=== PATIENT | male | born 1980 | race Two or more races ===

== ENCOUNTER 2022-01-04 06:29 | Day surgery (SDC) | payer OTHER ==
[~2022-01-04] VITALS: Ht 30.5 cm; Wt 90.7 kg
[~2022-01-04 06:29] MED LIST: ALTACE5 MG PO; PERCOCET PO
[2022-01-04] MEDS ORDERED: PERCOCET 5-3251 EACH PO (14:10)
== END 2022-01-04 16:25 | disposition home or self-care (01) ==
LOC: CIR.AMB 06:29
PROVIDERS: ATTEND Surgery
DX: K80.10 Calculus of gallbladder with chronic cholecystitis without obstruction (principal); Z88.6 Allergy status to analgesic agent; I10 Essential (primary) hypertension; Z86.16 Personal history of COVID-19; J45.909 Unspecified asthma, uncomplicated; F17.210 Nicotine dependence, cigarettes, uncomplicated; Z71.6 Tobacco abuse counseling; D17.1 Benign lipomatous neoplasm of skin and subcutaneous tissue of trunk